=== PATIENT | female | born 1940 | race Two or more races ===

== ENCOUNTER 2022-02-04 22:42 | Inpatient (IN) | payer MEDICARE, OTHER ==
[~2022-02-04] VITALS: Ht 154.9 cm; Wt 50.0 kg
[2022-02-05 00:10] LABS: Basophils # (auto) 0 10 ^3/uL (0-0.2); Basophils % (auto) 0.1 % (0.0-2.0); Eosinophils # (auto) 0 10 ^3/uL (0-0.8); Hemoglobin 7.1 g/dL (12.2-16.2); Lymphocytes # (auto) 0.8 10 ^3/uL (0.4-5.4); Monocytes # (auto) 0.9 10 ^3/uL (0-1.3); Neutrophils # (auto) 8.4 10 ^3/uL (1.6-8.6); White Blood Cell 10.1 10^3/uL (4.4-10.8)
[2022-02-05 00:12] LABS: Eosinophils % (auto) 0.3 % (0.0-7.0); Hematocrit 22.3 % (36.0-46.0); Mean Corpuscular Hemoglobin 25.6 pg (28.0-32.0); Mean Corpuscular Hgb Conc. 31.7 g/dL (32.0-36.0); Mean Corpuscular Volume 80.8 fL (80.0-100.0); Monocytes % (auto) 8.5 % (0.0-12.0); Neutrophils % (auto) 83.1 % (37.0-80.0); Red Blood Cells 2.77 10^6/uL (4.0-5.20); Red Cell Distribution Width 18.4 % (11.8-14.3)
[2022-02-05 00:41] LABS: BUN/Creatinine Ratio 19.1; Calcium 8.5 mg/dL (8.5-10.1); Potassium 4.6 mmol/L (3.5-5.1)
[2022-02-05 00:45] LABS: Bilirubin, Total 0.4 mg/dL (0.2-1.0); Total Protein 7.1 g/dL (6.4-8.2)
[2022-02-05] MEDS ORDERED: ACETAMINOPHEN 325 MG TAB PO PRN (04:45)
[2022-02-05] MEDS ORDERED: DEXTROSE (50%) 50ML SYRG IV PRN (04:45)
[2022-02-05] MEDS: ACETAMINOPHEN 325 MG TAB PO PRN ×2 (06:07→14:48)
[2022-02-05 06:51] LABS: Basophils # (auto) 0 10 ^3/uL (0-0.2); Basophils % (auto) 0.3 % (0.0-2.0); Eosinophils # (auto) 0 10 ^3/uL (0-0.8); Monocytes # (auto) 0.9 10 ^3/uL (0-1.3)
[2022-02-05 06:54] LABS: Eosinophils % (auto) 0.2 % (0.0-7.0); Hematocrit 21.2 % (36.0-46.0); Lymphocytes # (auto) 1.2 10 ^3/uL (0.4-5.4); Lymphocytes % (auto) 12.7 % (10.0-50.0); Mean Corpuscular Hemoglobin 26.3 pg (28.0-32.0); Mean Corpuscular Hgb Conc. 32.5 g/dL (32.0-36.0); Monocytes % (auto) 9.8 % (0.0-12.0); Neutrophils # (auto) 7.3 10 ^3/uL (1.6-8.6); Red Blood Cells 2.62 10^6/uL (4.0-5.20); Red Cell Distribution Width 17.7 % (11.8-14.3); White Blood Cell 9.5 10^3/uL (4.4-10.8)
[2022-02-05 07:22] LABS: Hemoglobin 6.9 g/dL (12.2-16.2)
[2022-02-05] MEDS: InsuLIN REG 1unit/0.01ml Soln (100units/ml) SC SCH ×2 (07:51→12:00)
[2022-02-05] MEDS: ACCU-CHEK COMFORT CURVE STRIP VI SCH ×2 (07:52→12:47)
[2022-02-05 09:45] LABS: Cholesterol 134 mg/dL (< 200); Triglycerides 92 mg/dL (< 150)
[2022-02-05 09:47] LABS: HDL Cholesterol 35 mg/dL (40-59); LDL Cholesterol 97 mg/dL (< 100)
[2022-02-05] MEDS ORDERED: LISINOPRIL 10 MG TAB PO SCH (10:00)
[2022-02-05] MEDS ORDERED: CLOPIDOGREL BISULFATE 75 MG TAB PO SCH (10:00)
[2022-02-05] MEDS ORDERED: CARVEDILOL 3.125 MG TAB PO SCH (10:00)
[2022-02-05] MEDS ORDERED: LOSARTAN POTASSIUM 25 MG TAB PO SCH (10:00)
[2022-02-05] MEDS ORDERED: ASPirin 81 mg TAB PO SCH (10:00)
[2022-02-05] MEDS ORDERED: ENOXAPARIN SOD 40 MG/0.4 ML SYRINGE SC SCH (10:00)
[2022-02-05 10:42] LABS: Free T4 (Free Thyroxine) 0.97 ng/dL (0.89-1.76)
[2022-02-05] MEDS ORDERED: SODIUM CHLORIDE 0.9% 500 ML IV ONE (12:15)
[2022-02-05 14:43] VITALS: BP 99/65
[2022-02-05 15:00] VITALS: BP 114/51
[2022-02-05 15:30] VITALS: BP 124/49
[2022-02-05 16:15] VITALS: BP 101/48
[2022-02-05 17:45] VITALS: BP 90/41
[2022-02-05] MEDS ORDERED: PANTOPRAZOLE 40 MG/10 ML VIAL INJ IV SCH (22:00)
[2022-02-05] MEDS ORDERED: OSELTAMIVIR 75 MG CAP PO SCH (22:00)
[2022-02-05] MEDS ORDERED: ATORVASTATIN 20 MG TAB PO SCH (22:00)
[2022-02-06 12:46] LABS: Folate (Folic Acid) 15.33 ng/mL (5.38-24)
== END 2022-02-05 18:20 | disposition left against medical advice (07) | DRG 720 ==
LOC: ER 22:42 → EDBD 22:42 → TELE 02-05 04:34
PROVIDERS: ADMIT Hospitalist; ATTEND Nurse Practitioner Acute Care
PROC: 30233N1 Transfusion of Nonautologous Red Blood Cells into Peripheral Vein, Percutaneous Approach (ICD-10-PCS; principal; 2022-02-05)
DX: A41.9 Sepsis, unspecified organism (principal); R57.9 Shock, unspecified; G93.41 Metabolic encephalopathy; U07.1 COVID-19; K76.82 Hepatic encephalopathy; C22.9 Malignant neoplasm of liver, not specified as primary or secondary; G45.9 Transient cerebral ischemic attack, unspecified; D64.9 Anemia, unspecified; K92.2 Gastrointestinal hemorrhage, unspecified; E11.9 Type 2 diabetes mellitus without complications; E86.1 Hypovolemia; G30.9 Alzheimer's disease, unspecified; Z66 Do not resuscitate; F02.80 Dementia in other diseases classified elsewhere, unspecified severity, without behavioral disturbance, psychotic disturbance, mood disturbance, and anxiety; Z53.29 Procedure and treatment not carried out because of patient's decision for other reasons; I10 Essential (primary) hypertension; J10.1 Influenza due to other identified influenza virus with other respiratory manifestations; Z85.118 Personal history of other malignant neoplasm of bronchus and lung; Z85.41 Personal history of malignant neoplasm of cervix uteri
CPT/HCPCS: 36415; 70450; 71045; 80053; 80061; 82140; 82607; 82746; 82962; 83880; 84439; 84443; 84484; 85025; 86850; 86900; 86901; 86920; 87040; 87426; 87804; 95819; 96360; G0378; J1815